=== PATIENT | male | born 1985 | race Hispanic/Latino ===

== ENCOUNTER 2018-12-15 04:42 | Inpatient (IN) | payer MEDICAID ==
[2018-12-15 04:42] VITALS: BMI 42.5
--- NOTE | 2018-12-15 06:38 | ED PDOC ---
HPI: Psych/Substance Abuse Time Seen by Provider: 12/15/18 05:25 Chief Complaint (Nursing): Psychiatric Evaluation Chief Complaint (Provider): Psychiatric Evaluation History Per: Patient History/Exam Limitations: no limitations Associated Symptoms: Depression, Suicidal Thoughts. denies: Suicidal Plan Additional Complaint(s): 33 y/o male with history of major depressive disorder and bipolar disorder presents to the ED for psychiatric evaluation. Patient reports that his medications are not working. He states he is feeling depressed. He has suicidal thought but no plan. Denies any drugs or alcohol. Past Medical History Reviewed: Historical Data, Nursing Documentation, Vital Signs Vital Signs: Last Vital Signs Temp 98.0 F 12/15/18 05:19 Pulse 93 H 12/15/18 05:19 Resp 16 12/15/18 05:19 BP 139/99 H 12/15/18 05:19 Pulse Ox 98 12/15/18 05:19 - Medical History PMH: Anxiety, Bipolar Disorder, Depression, HTN, Post Traumatic Stress Disorder Denies: Diabetes, Hepatitis, HIV, Chronic Kidney Disease, Seizures, Sexually Transmitted Disease - Family History Family History: States: Unknown Family Hx - Immunization History Hx Tetanus Toxoid Vaccination: Yes (I MONTH AGO) Hx Influenza Vaccination: No Hx Pneumococcal Vaccination: No - Home Medications Home Medications: Ambulatory Orders Medication Instructions Recorded Divalproex [Depakote DR(*BID*)] 500 mg PO TID #45 tcp 05/09/18 Quetiapine Fumarate [Seroquel] 400 mg PO AMHS #30 tablet 05/09/18 clonazePAM [Klonopin] 1 mg PO AMHS #30 tab 05/09/18 Acetaminophen/Butalbital/Caf 1 tab PO QID PRN #30 tab 09/05/18 [Fioricet] - Allergies Allergies/Adverse Reactions: Allergies Allergy/AdvReac Type Severity Reaction Status Date / Time No Known Allergies Allergy Verified 05/18/18 13:20 Review of Systems ROS Statement: Except As Marked, All Systems Reviewed And Found Negative Psych: Positive for: Depression, Suicidal ideation Physical Exam - Reviewed Nursing Documentation Reviewed: Yes Vital Signs Reviewed: Yes - Physical Exam Appears: Positive for: Non-toxic, No Acute Distress (disheveled) Head Exam: Positive for: ATRAUMATIC, NORMOCEPHALIC Skin: Positive for: Normal Color, Warm, DRY Eye Exam: Positive for: EOMI, Normal appearance, PERRL ENT: Positive for: Normal ENT Inspection Neck: Positive for: Normal, Painless ROM Cardiovascular/Chest: Positive for: Regular Rate, Rhythm. Negative for: Murmur Respiratory: Positive for: Normal Breath Sounds. Negative for: Respiratory Distress Gastrointestinal/Abdominal: Positive for: Normal Exam, Soft. Negative for: Tenderness Back: Positive for: Normal Inspection Extremity: Positive for: Normal ROM. Negative for: Pedal Edema, Deformity Neurological/Psych: Positive for: Awake, Alert, Normal Tone, Oriented (x3). Neg ative for: Motor/Sensory Deficits - ECG O2 Sat by Pulse Oximetry: 98 (RA) Pulse Ox Interpretation: Normal Medical Decision Making Medical Decision Making: Time: 05:25 A/P: 33 y/o with bipolar disorder. Will require crisis evaluation. Patient does not seem to be a danger to himself or others right now. * Crisis evaluation 07:[address] Yi pending crisis eval Scribe Attestation: Documented by Sixto Dale, acting as a scribe for Aba Marino MD. Provider Scribe Attestation: All medical record entries made by the Scribe were at my direction and personally dictated by me. I have reviewed the chart and agree that the record accurately reflects my personal performance of the history, physical exam, medical decision making, and the department course for this patient. I have also personally directed, reviewed, and agree with the discharge instructions and disposition. Disposition - Clinical Impression Clinical Impression: Bipolar 1 disorder - Patient ED Disposition Is Patient to be Admitted: Transfer of Care - Disposition Disposition: Transfer of Care Disposition Time: 07:00 Condition: STABLE Forms: [employer] (Bulgarian) Patient Signed Over To: Danis Yi Handoff Comments: pending crisis eval
--- NOTE | 2018-12-15 07:20 | ED PDOC ---
- Laboratory Results Result Diagrams: 12/15/18 10:00 12/15/18 10:00 - ECG O2 Sat by Pulse Oximetry: 98 (RA) Pulse Ox Interpretation: Normal Medical Decision Making Medical Decision Makinyo male, came to ER with complaints of depression, suicidal thoughts. Patient signed out to me by Dr. Marino pending crisis evaluation. 0940 Patient seen by crisis team, will be admitted. Labs, urinalysis, UDS ordered. 1200 Labs reviewed, patient is medically cleared for admission. Patient to be admitted under dr. Ramos, diagnosis of bipolar disorder. Scribe Attestation: Documented by Avelina Lara acting as a scribe for Danis Yi MD. Provider Attestation: All medical record entries made by the Scribe were at my direction and personally dictated by me. I have reviewed the chart and agree that the record accurately reflects my personal performance of the history, physical exam, medical decision making, and the department course for this patient. I have also personally directed, reviewed, and agree with the discharge instructions and disposition. Disposition - Clinical Impression Clinical Impression: Bipolar 1 disorder - POA Present On Arrival: None - Disposition Disposition: Admitted as In-Patient Disposition Time: 12:01 Condition: STABLE Forms: [employer] (Citizen Of [place])
[2018-12-15 10:13] LABS: BASO % 0.5 % (0.0-2.0); EOS # 0.3 K/uL (0.0-0.7); HEMOGLOBIN 14.3 g/dL (12.0-18.0); LYMPH # 2.1 K/uL (1.0-4.3); LYMPH % 24.2 % (20.0-40.0); MEAN CELL VOLUME 90.8 fl (80.0-94.0); MEAN CORPUSCULAR HGB CONC 34.1 g/dL (33.0-37.0); MEAN PLATELET VOLUME 10.3 fl (7.2-11.7); MONO # 0.8 K/uL (0.0-0.8); MONO % 9.8 % (0.0-10.0); NEUT # 5.4 K/uL (1.8-7.0); NEUT % 62.5 % (50.0-75.0); NRBC % 0.2 % (0.0-0.0); RBC 4.6 Mil/uL (4.40-5.90); WHITE BLOOD COUNT 8.6 K/uL (4.8-10.8)
[2018-12-15 10:31] LABS: BLOOD UREA NITROGEN 17 mg/dl (9-20); CALCIUM 9.6 mg/dL (8.4-10.2); GFR NON-AFRICAN AMERICAN > 60
[2018-12-15 10:33] LABS: ACETAMINOPHEN < 10.0 ug/ml (10.0-30.0); SALICYLATE < 1.0 mg/dl
[2018-12-15 11:37] LABS: URINE BILIRUBIN NEGATIVE (NEGATIVE); URINE BLOOD NEGATIVE (NEGATIVE); URINE CLARITY CLEAR (Clear); URINE COLOR YELLOW (YELLOW); URINE GLUCOSE (UA) NEG (NEGATIVE); URINE LEUKOCYTE ESTERASE NEG Leu/uL (Negative); URINE PROTEIN NEGATIVE (NEGATIVE)
[2018-12-15 12:03] LABS: BARBITURATES, UR NEGATIVE (NEGATIVE); BENZODIAZEPINES, UR POSITIVE (NEGATIVE); OPIATES, UR NEGATIVE (NEGATIVE); PHENCYCLIDINE, UR NEGATIVE (NEGATIVE)
[2018-12-15 12:43] VITALS: O2SAT 96
[2018-12-15] MEDS ORDERED: Alum-Mag Hydrox-Simethicone Susp (30 mL) PO PRN (15:48)
[2018-12-15] MEDS ORDERED: DiphenhydrAMINE 50 mg/ml Inj IM PRN (15:48)
[2018-12-15] MEDS ORDERED: Magnesium Hydroxide Susp 30 ml UD PO PRN (15:48)
--- NOTE | 2018-12-15 17:20 | CARD ---
APPROVED REPORT Date of service: 12/15/2018 EKG Measurement Heart [id number] <Conclusion> Normal sinus rhythm Normal ECG
--- NOTE | 2018-12-15 18:58 | PCM.BM ---
<Eulalio Lemon - Last Filed: 12/15/18 18:55> Treatment Plan Problems - Problems identified on initial assessmt Suicidal Ideation Date Initiated: 12/15/18 Time Initiated: 16:00 Assessment reference: NA Status: Active High Risk: Violence Date Initiated: 12/15/18 Time Initiated: 16:00 Assessment reference: NA Status: Active Substance Use Date Initiated: 12/15/18 Time Initiated: 16:00 Assessment reference: NA Status: Active Medication Nonadherence Date Initiated: 12/15/18 Time Initiated: 16:00 Assessment reference: NA Status: Active Hopelessness/Helplessness Date Initiated: 12/15/18 Time Initiated: 16:00 Assessment reference: NA Status: Active Treatment assets and liabiliti Patient Assests: cooperative, ADL independent, negotiates basic needs, cognitively intact Patient Liabilities: relationship conflicts, substance abuse - Milieu Protocol Maintain good personal hygiene: every shift Encourage regular showers, every shift Remind patient to perform daily oral care, every shift Assist patient to perform ADL's Maintain personal safety: every shift Educate patient to report safety concerns to staff, every shift Monitor environment for contraband/sharps Medication safety: Monitor for expected outcome, potential side effects: every shift, Assess barriers to learning: every shift, Assess readiness for medication education: every shift <Han Andres - Last Filed: 12/17/18 15:56> Family Contact Family involvement: Famliy/SO not involved Family contact: Patient declines to allow family contact at present Family contact name: Pt refused. - Goals for Treatment Patient goals for treatment: Pt reported he would like to be tapered off of Benzodiazepams and referred to long-term rehab. Discharge/Continuing Care - Education Needs Education Needs: Patient Medication, Patient Diagnosis/Disease Process, Patient Coping Skills, Patient Placement options, Patient Community resources, Patient Aftercare Safety Plan - Discharge Discharge Criteria: Tolerates medication w/o severe side effects, Free of Suicidal thoughts, Free of paranoid thoughts, Free of agitation, Normal sleep pattern, Ability to care for self, Reduction of target symptoms Discharge to:: Substance Abuse Rehab - Treatment Team Participation Patient/Family/SO Statement: 12/17/18 15:58 Pt seen in treatment team on 12/17/18. Pt reported he was seeing a doctor at [facility]. Pt denied current SI and prior attempts. Pt reported he would like to be referred to [facility] and was admitted to one previously about 10 years ago. Pt reported his mother is an alcoholic, but he does not want to live with her anymore. Pt's Seroquel and Wellbutrin were discussed. Pt reported good sleep and mood. Pt denied HI and AVT hallucinations. Pt is oriented X4. Discussed with Family/SO: No Was Patient/Family/SO present at Treatment Team Meeting: Yes <Emily Leonard - Last Filed: 12/18/18 14:43> - Diagnosis (1) Bipolar 1 disorder Status: Acute Interventions: 12/18/18 14:42 pharmacothreapy/ start a mood stabilizer (2) Sedative abuse Status: Acute Interventions: motivational therapy/ referral to rehab 12/18/18 14:43
--- NOTE | 2018-12-16 15:20 | PCM.PSYCH ---
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, presented to ER with suicidal ideation to hang himself pt has not been compliant with medications and follow up , has been increasingly depressed due to being homeless and unemployed, relapsed on cannabis and unspecified amount of klonopin on evaLUATION PT GUARDED EVASIVE, REPORTED LOW ENERGY HOPLESS AND HELPLESS, PASSIVE SUICIDAL IDEATION WITHOUT ACTIVE PLAN ON THE UNIT, DENIED HOMICIDAL IDEATION, DENIED PERCEPTUAL DISTURBANCES Current Medications: Active Medications Generic Name Dose Route Start Last Admin Trade Name Freq PRN Reason Stop Dose Admin Acetaminophen 650 mg 12/15/18 15:48 Tylenol 325mg Tab PO Q4 PRN Pain, moderate (4-7) Al Hydrox/Mg Hydrox/Simethicone 30 ml 12/15/18 15:48 Maalox Plus 30 Ml PO Q4 PRN Dyspepsia Bupropion HCl 75 mg 12/16/18 13:19 Wellbutrin PO DAILY CECE Clonazepam 0.5 mg 12/16/18 17:00 Klonopin PO TID CECE Diphenhydramine HCl 50 mg 12/15/18 15:48 Benadryl IM Q6 PRN Extrapyramidal S/S Unable PO Diphenhydramine HCl 50 mg 12/15/18 15:48 Benadryl PO Q6 PRN Extrapyramidal Symptoms Gabapentin 200 mg 12/15/18 17:00 12/16/18 09:35 Neurontin PO 200 mg TID CECE Administration Haloperidol 5 mg 12/15/18 15:48 Haldol PO Q4 PRN Agitation Haloperidol Lactate 5 mg 12/15/18 15:48 Haldol IM Q4 PRN Agitation, Unable to Take PO Lorazepam 2 mg 12/15/18 15:48 Ativan IM Q4 PRN Anxiety/Agitation,Unable PO Lorazepam 2 mg 12/15/18 15:48 Ativan PO Q4 PRN Anxiety/Agitation Magnesium Hydroxide 30 ml 12/15/18 15:48 Milk Of Magnesia PO HS PRN Constipation Quetiapine Fumarate 200 mg 12/16/18 22:00 Seroquel PO HS CECE Past Psychiatric History - Past Psychiatric History Explanation of prior treatment: MULTIPLE HOSPITALIZATIONS INCLUDING INPATIENT REHAB , HX OF NON COMPLIANCE History of ETOH/Drug Use: BENZODIAZEPINES, CANANBIS Pertinent Medical Hx (Current Medical&Sleep Prob, Allergies): Allergies Allergy/AdvReac Type Severity Reaction Status Date / Time No Known Allergies Allergy Verified 05/18/18 13:20 Clonazepam [Klonopin] 2 mg PO DAILY 12/15/18 Ergocalciferol (Vitamin D2) [Vitamin D2] 50,000 unit PO QWK 12/15/18 NIFEdipine ER [Procardia XL] 90 mg PO DAILY 12/15/18 Quetiapine Fumarate [Seroquel] 400 mg PO HS 12/15/18 amLODIPine [Norvasc] 10 mg PO DAILY 12/15/18 hydroCHLOROthiazide [Hydrodiuril] 25 mg PO DAILY 12/15/18 Mental Status Examination - Personal Presentation Personal Presentation: Looks older than stated age - Affect Affect: Constricted, Depressed - Motor Activity Motor Activity: Psychomotor Retardation - Reliability in Providing Information Reliability in Providing Information: Fair - Speech Speech: Relevant - Mood Mood: Depressed, Anxious - Formal Thought Process Formal Thought Process: Circumstantial - Obsessions/Compulsions Obsessions: No Compulsions: No - Cognitive Functions Orientation: Person, Place Attention/Concentration: Easily distracted Abstract Thinking: Marydel Judgement: Imparied, as evidence by: Poor judgement, Imparied, as evidence by: Lack of insight into illness - Risk Risk: Suicidal, Withdrawal, Diminished functioning - Strength & Assets Inventory Strength & Assets Inventory: Life experience - Limitations Additional comments: POOR COMPLIANCE DSM 5 DX - DSM 5 DSM 5 Diagnosis: BIPOLAR DISORDER DEPRESSED KLONOPIN ABUSE CANNABIS ABUSE - Recommended/Plan of Treatment Treatment Recommendations and Plan of Treatment: start klonopin tid decrease gradually to avoid withdrawal symptoms wellbutrin 75mg daily seroquel 100mg qhs increase gradually motivatinal group and supportive therapy
--- NOTE | 2018-12-17 15:54 | PCM.PYCHPN ---
Psychiatric Progress Note - Psychiatric Progress Note Patient seen today, length of contact: pt evaluated discussed with team chart reviewed Patient Chief Complaint: I want to start rehab Problems Identified/Issues Discussed: pt evaluated with treatment team, presenting with depressed mood and affect, discussed increasing wellbutrin and seroquel, motivtional therapy provided , discussed effect of substance use on current mental status ,pt agreed for referral to [facility], denied any side effects of medications, denied suicidal or homicidal ideation denied perceptual disturbances Medical Problems: MULTIPLE HOSPITALIZATIONS INCLUDING INPATIENT REHAB , HX OF NON COMPLIANCE DSM 5 Symptoms Update: bipolar disorder sedative abuse cannabis abuse Medication Change: Yes (increase seroquel) Medical Record Reviewed: Yes Mental Status Examination - Cognitive Function Orientation: Person, Place, Situation Attention: WNL Concentration: Poor Association: WNL Fund of Knowledge: Poor Decription of patient's judgement and insights: partial insight poor judgment - Mood Mood: Depressed, Anxious - Affect Affect: Constricted, Depressed - Speech Speech: Soft - Formal Thought Process Formal Thought Process: Circumstantial - Suicidal Ideation Suicidal Ideation: No - Homicidal Ideation Homicidal Ideation: No Goal/Treatment Plan - Goal/Treatment Plan Need for Continued Stay: Remain at risks for inpatient hospitalization, Severe depression anxiety, Discharge may exacerbated symptoms Progress Toward Problem(s) and Goals/Treatment Plan: discontinue klonopin wellbutrin 150mg daily seroquel 300mg qhs motivatinal group and supportive therapy
[2018-12-18] MEDS: buPROPion SR 150 MG TABLET PO SCH (08:44)
--- NOTE | 2018-12-18 14:49 | PCM.PYCHPN ---
Psychiatric Progress Note - Psychiatric Progress Note Patient seen today, length of contact: pt evaluated discussed with team chart reviewed Patient Chief Complaint: I will go to [facility] Problems Identified/Issues Discussed: pt evaluated , less irritable, continues to feel down, discussed the effect of substance use on current mental status , pt agrees to start [facility] program, no reported side effects of medications, denied any current suicidal or homicidal ideation denied perceptual disturbances Medical Problems: MULTIPLE HOSPITALIZATIONS INCLUDING INPATIENT REHAB , HX OF NON COMPLIANCE DSM 5 Symptoms Update: bipolar I disorder sedative anxiolytic abuse alcohol abuse Medication Change: No Medical Record Reviewed: Yes Mental Status Examination - Cognitive Function Orientation: Person, Place, Situation Attention: WNL Concentration: Poor Association: WNL Fund of Knowledge: Poor Decription of patient's judgement and insights: partial insight poor judgment - Mood Mood: Anxious - Affect Affect: Constricted, Depressed - Speech Speech: Soft - Formal Thought Process Formal Thought Process: Circumstantial - Suicidal Ideation Suicidal Ideation: No - Homicidal Ideation Homicidal Ideation: No Goal/Treatment Plan - Goal/Treatment Plan Need for Continued Stay: Remain at risks for inpatient hospitalization, Severe depression anxiety, Discharge may exacerbated symptoms Progress Toward Problem(s) and Goals/Treatment Plan: wellbutrin 150mg daily seroquel 300mg qhs motivational group and supportive therapy referral to [facility]
[2018-12-19] MEDS: buPROPion SR 150 MG TABLET PO SCH (09:00)
--- NOTE | 2018-12-19 09:44 | PCM.PYCHDC ---
Mental Status Examination - Mental Status Examination Orientation: Person, Place, Situation Memory: Intact Mood: Neutral Affect: Broad Speech: Appropriate Attention: WNL Concentration: WNL Association: WNL Fund of Knowledge: WNL Formal Thought Process: Circumstantial Description of patient's judgement and insight: partial insight poor judgment Psychotic Thoughts and Behaviors: pt on discharge denied any psychotic symptoms, non elicited Suicidal Ideation: No Current Homicidal Ideation?: No Discharge Summary - Discharge Note Reason for Hospitalization: pt is 33 ys old male with previous diagnosis of bipolar disorder and 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 Reason for request. 2. Findings. 3. Follow-up Summary of Hospital Course include:: 1. Description of specific treatment plan utilized for patients during their course of treatmen. 2. Summarize the time- course for resolution of acute symptoms and/or regressed behaviors. 3. Describe issues identified and worked on during hospitalization. 4. Describe medication utilized. 5. Describe medical problems identified and treated. 6. Reassessment of suicide risk Summary of Hospital Course: pt on admission was started on klonopin 1mg tid to avoid sedative withdrawal symptoms, pt was started on neurontin for anxiety and seroquel for mood stabilization motivational group and supportive therapy provided pt was compliant with treatment , no reported side effects of medications pt was referred to [facility] on discharge his mental status was stable pt denied any current suicidal or homicidal ideation denied perceptual disturbances - Diagnosis (1) Bipolar 1 disorder Current Visit: Yes Status: Acute (2) Sedative abuse Current Visit: Yes Status: Acute - Final Diagnosis (DSM 5) Condition upon Discharge: STABLE DSM 5: bipolar I disorder sedative anxiolytic dependence cannabis abuse Disposition: HOME/ ROUTINE Follow-up Treatment Plan: wellbutrin 150mg daily seroquel 300mg qhs motivational group and supportive therapy referral to [facility] Prescriptions/Medication Reconciliation: buPROPion SR [Wellbutrin SR 150 MG] 150 mg PO DAILY 30 Days #30 tab Gabapentin [Neurontin] 200 mg PO TID 30 Days #180 cap QUEtiapine [SEROquel] 300 mg PO HS 30 Days #30 tab - Antipsychotic Medications Pt discharged on 2 or more routine antipsychotic medications: No
[2018-12-19 09:54] VITALS: BP 153/91; PULSE 73; RESP 20; TEMP 97.2
== END 2018-12-19 14:14 | disposition home or self-care (01) | DRG 430 ==
LOC: H.ER 04:42 → H.ERHOLD 12:00 → H.PSYCH 14:57
PROVIDERS: ADMIT Psychiatry & Neurology Psychiatry; ATTEND Psychiatry & Neurology Psychiatry
PROC: GZHZZZZ Group Psychotherapy (ICD-10-PCS; principal; 2018-12-15)
PROC: GZ58ZZZ Individual Psychotherapy, Cognitive-Behavioral (ICD-10-PCS; 2018-12-15)
DX: F31.9 Bipolar disorder, unspecified (principal); F13.20 Sedative, hypnotic or anxiolytic dependence, uncomplicated; F12.10 Cannabis abuse, uncomplicated; F10.10 Alcohol abuse, uncomplicated; R45.851 Suicidal ideations; Z91.19 Patient's noncompliance with other medical treatment and regimen